=== PATIENT | female | born 1990 | race Caucasian/White ===

== ENCOUNTER 2025-01-22 21:50 | Emergency (ER) | payer SELFPAY ==
[~2025-01-22] VITALS: Ht 165.1 cm; Wt 74.0 kg
[2025-01-22 21:55] VITALS: BP 102/62; PULSE 62; RESP 16; TEMP 37; O2SAT 100
== END 2025-01-22 22:25 | disposition left against medical advice (07) ==
LOC: ER 21:50
DX: F10.129 Alcohol abuse with intoxication, unspecified (principal); Z53.21 Procedure and treatment not carried out due to patient leaving prior to being seen by health care provider; Y90.9 Presence of alcohol in blood, level not specified